=== PATIENT | male | born 1940 | race Caucasian/White ===

== ENCOUNTER 2021-02-15 18:23 | Emergency (ER) | payer MEDICARE ==
[~2021-02-15] VITALS: Ht 175.3 cm; Wt 69.8 kg
[2021-02-15 18:59] LABS: BASOPHILS % (AUTO) 0 % (0-1); EOSINOPHILS % (AUTO) 1 % (1-7); LYMPHOCYTES % (AUTO) 17 % (22-44); MEAN CORPUSCULAR HEMOGLOBIN 33.1 pg (27.5-34.5); MEAN CORPUSCULAR HGB CONC 33.8 g/dL (33.2-36.2); MEAN PLATELET VOLUME 8.1 fL (7.4-10.4); MONOCYTES % (AUTO) 13 % (2-9); NEUTROPHILS % (AUTO) 68 % (42-75); PLATELET COUNT 235 x10^3/uL (130-400); RED BLOOD COUNT 4.18 x10^6/uL (4.38-5.82); RED CELL DISTRIBUTION WIDTH 13.4 % (9.4-14.8)
[2021-02-15 19:09] LABS: ALANINE AMINOTRANSFERASE 40 U/L (12-78); ALBUMIN 3.5 g/dL (3.4-5.0); ANION GAP 4 mmol/L (5-15); CALCIUM 9.1 mg/dL (8.5-10.1); CHLORIDE 111 mmol/L (98-107); CREATININE 1.11 mg/dL (0.7-1.3)
[2021-02-15 19:11] LABS: ALKALINE PHOSPHATASE 87 U/L (45-117)
--- NOTE | 2021-02-15 19:36 | NUR ---
SPOKE WITH SOCIAL WORK AND WILL CONSULT WITH .
--- NOTE | 2021-02-15 19:42 | NUR ---
URINE COLLECTED AND SENT TO LAB
[2021-02-15 20:00] LABS: MICROSCOPIC INDICATED
[2021-02-15 20:04] LABS: AMPHETAMINE SCREEN, URINE Positive (Negative); BARBITURATE SCREEN, URINE Negative (Negative); BENZODIAZEPINE SCREEN, URINE Negative (Negative); CANNABINOID SCREEN, URINE Negative (Negative); COCAINE SCREEN, URINE Negative (Negative); METHADONE SCREEN, URINE Negative (Negative); OPIATE SCREEN, URINE Negative (Negative)
--- NOTE | 2021-02-15 21:11 | NUR ---
PT PROVIDED MEAL TRAY PRIOR TO DISCHARGE.
[2021-02-15 22:10] VITALS: BP 110/62
== END 2021-02-15 22:12 | disposition home or self-care (01) ==
LOC: ED 19:29
DX: F15.10 Other stimulant abuse, uncomplicated (principal); G92 Toxic encephalopathy; Z72.9 Problem related to lifestyle, unspecified
CPT/HCPCS: 36415; 71045; 80053; 80307; 80320; 81001; 83605; 85025; 93005; 99285; G0480